=== PATIENT | male | born 1975 | race Hispanic/Latino ===

== ENCOUNTER 2021-10-30 01:25 | Inpatient (IN) | payer SELFPAY ==
[2021-10-30 04:29] VITALS: BMI 26.9
[2021-10-30] MEDS ORDERED: Morphine 2 MG/ML VIAL SLOW IVP PRN (04:57)
[2021-10-30] MEDS ORDERED: Ondansetron ODT 4 MG TAB SL PRN (05:00)
[2021-10-30] MEDS ORDERED: Ondansetron PF 4 MG/2 ML Vial IVP PRN (05:00)
[2021-10-30] MEDS ORDERED: Acetaminophen 650 MG Suppository PR PRN (05:17)
[2021-10-30] MEDS ORDERED: Acetaminophen 325 MG TAB PO PRN (05:17)
[2021-10-30] MEDS ORDERED: Morphine 4 MG/ML VIAL SLOW IVP PRN (05:23)
[2021-10-30 06:22] LABS: SARS-CoV-2 NAA Rapid Test Not Detected (NotDetected)
[2021-10-30] MEDS: Sodium Chloride 0.9% 1,000 ML IV SCH ×2 (06:56→18:36)
[2021-10-30] MEDS ORDERED: Acetaminophen 500 MG TAB PO PRN (09:01)
[2021-10-30] MEDS ORDERED: Ketorolac Tromethamine 30 MG/ML VIAL IVP PRN (09:01)
[2021-10-30] MEDS ORDERED: Ketorolac Tromethamine 30 MG/ML VIAL IVP SCH (09:15)
[2021-10-30] MEDS ORDERED: Acetaminophen 500 MG TAB PO SCH (09:15)
[2021-10-30 13:50] LABS: ALT (SGPT) 24 U/L (8-55); AST (SGOT) 18 U/L (5-34); Albumin 3.6 g/dL (3.5-5.0); Alkaline Phosphatase 82 U/L (40-110); Anion Gap 9 mmol/L (10-20); BUN (Urea Nitrogen) 18 mg/dL (8.9-20.6); Bilirubin, Total 0.7 mg/dL (0.2-1.2); Calc. Creatinine Clearance 118 mL/min (70-130); Calcium 8.2 mg/dL (7.8-10.44); Carbon Dioxide 25 mmol/L (22-29); Chloride 108 mmol/L (98-107); Globulin 2.7 g/dL (2.4-3.5); Glucose 79 mg/dL (70-105); Potassium 3.8 mmol/L (3.5-5.1); Protein, Total 6.3 g/dL (6.0-8.3); Sodium 138 mmol/L (136-145)
[2021-10-30] MEDS ORDERED: Bupivacaine PF 0.5% 30 ML VIAL ONE (18:55)
[2021-10-30] MEDS ORDERED: EPINEPHrine 1 MG/ML AMP ONE (18:55)
[2021-10-30] MEDS ORDERED: Iopamidol 30 ML ONE (18:57)
[2021-10-30] MEDS ORDERED: Midazolam HCl 2 mg/2 ml Vial ONE (19:03)
[2021-10-30] MEDS ORDERED: Fentanyl 250 MCG/5 ML VIAL ONE (19:04)
[2021-10-30] MEDS ORDERED: Rocuronium Bromide 10 MG/ML (10ML VIAL) ONE (19:20)
[2021-10-30] MEDS ORDERED: Dexamethasone 20 MG/5 ML VIAL ONE (19:20)
[2021-10-30] MEDS ORDERED: Lidocaine 1% PF 5 ML VIAL ONE (19:20)
[2021-10-30] MEDS ORDERED: Ondansetron PF 4 MG/2 ML Vial ONE (19:20)
[2021-10-30] MEDS ORDERED: PROPOFOL 200 MG/20 ML VIAL ONE (19:20)
[2021-10-30] MEDS ORDERED: Glycopyrrolate 0.2 MG/ML 5 ML SYRINGE ONE (19:20)
[2021-10-30] MEDS ORDERED: HYDROcodone/Acetaminophen 5/325 mg Tablet PO PRN (20:15)
[2021-10-30] MEDS ORDERED: Promethazine HCl 25 MG/ML VIAL IM PRN (20:16)
[2021-10-30] MEDS ORDERED: Promethazine HCl 25 MG/ML VIAL IVPB PRN (20:16)
[2021-10-30] MEDS ORDERED: Fentanyl 100 MCG/2 ML VIAL ONE (20:16)
[2021-10-30] MEDS ORDERED: Ondansetron HCl/PF 4 MG/2 ML Vial IVP PRN (20:16)
[2021-10-30] MEDS ORDERED: HYDROmorphone 2 MG/ML VIAL SLOW IVP PRN (20:16)
[2021-10-30] MEDS ORDERED: Ibuprofen 600 MG TAB PO PRN (20:17)
[2021-10-30 23:40] VITALS: TEMP 97.6
[2021-10-30 23:53] VITALS: BP 118/74
== END 2021-10-30 22:50 | disposition home or self-care (01) | DRG 418 ==
LOC: SJJU 01:25
PROVIDERS: ADMIT Student in an Organized Health Care Education/Training Program; ATTEND Internal Medicine
PROC: 0FT44ZZ Resection of Gallbladder, Percutaneous Endoscopic Approach (ICD-10-PCS; principal; 2021-10-30)
PROC: BF101ZZ Fluoroscopy of Bile Ducts using Low Osmolar Contrast (ICD-10-PCS; 2021-10-30)
DX: K80.13 Calculus of gallbladder with acute and chronic cholecystitis with obstruction (principal); K82.1 Hydrops of gallbladder; F17.210 Nicotine dependence, cigarettes, uncomplicated; Z20.822 Contact with and (suspected) exposure to COVID-19; Z90.49 Acquired absence of other specified parts of digestive tract
CPT/HCPCS: 36415; 47532; 76705; 80053; 88304; C1713; J0171; J1100; J1610; J1885; J1956; J2250; J2405; J2704; J3010; J7050; Q9967; S0020; U0002